=== PATIENT | female | born 2000 | race Caucasian/White ===

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

== ENCOUNTER 2021-10-20 01:02 | Emergency (ER) | payer BC, OTHER ==
[2021-10-20 01:12] VITALS: BP 108/70; PULSE 88; RESP 18; TEMP 98.7; BMI 26.6
[2021-10-20 02:04] LABS: BASO % 0.5 % (0-2.0); EOS % 1.6 % (0-4.5); HEMATOCRIT 36.8 % (32.4-45.2); HEMOGLOBIN 12.3 GM/dL (10.7-15.3); LYMPH % 25.9 % (8-40); MCH 30.4 pg (25.7-33.7); MCHC 33.6 g/dl (32.0-36.0); MEAN CELL VOLUME 90.6 fl (80-96); MEAN PLT VOLUME 9.3 fl (7.5-11.1); MONO % 4.4 % (3.8-10.2); NEUT % 67.6 % (42.8-82.8); PLATELET COUNT 248 10^3/uL (134-434); RBC 4.06 M/mm3 (3.60-5.2); RDW 13.1 % (11.6-15.6); WHITE BLOOD COUNT 7.5 K/mm3 (4.0-10.0)
[2021-10-20 02:26] LABS: ALBUMIN 3.7 g/dl (3.4-5.0); BLOOD UREA NITROGEN 10.7 mg/dL (7-18); CALCIUM 8.8 mg/dL (8.5-10.1)
[2021-10-20 02:30] LABS: CREATININE 0.7 mg/dL (0.55-1.3)
[2021-10-20 02:31] LABS: TOT PROT 7.1 g/dl (6.4-8.2)
[2021-10-20 02:36] LABS: BILIRUBIN,TOTAL 0.3 mg/dL (0.2-1)
== END 2021-10-20 02:48 | disposition home or self-care (01) ==
LOC: JER 01:02
DX: R55 Syncope and collapse (principal); S00.452A Superficial foreign body of left ear, initial encounter; W45.8XXA Other foreign body or object entering through skin, initial encounter
CPT/HCPCS: 36415; 71045-TC-FY; 80053; 84484; 85025; 93005; 93010; 99285-25